=== PATIENT | male | born 1975 ===

== ENCOUNTER 2017-04-09 09:03 | Emergency (ER) | payer MEDICAID ==
[2017-04-09 09:22] VITALS: RESP 18; TEMP 98.6
[2017-04-09] MEDS ORDERED: Sodium Chloride 0.9% 1,000 ML IV STA (10:24)
--- NOTE | 2017-04-09 10:27 | ED PDOC ---
Arrival/HPI - General Chief Complaint: Flu-like Symptoms Time Seen by Provider: 04/09/17 09:52 Historian: Patient, Spouse - History of Present Illness Narrative History of Present Illness (Text): you were treated in the ED today for history of pituitary tumor medically treated and now with sinus congestion/body aches/fever and a recent cut to right 2nd finger which has healed and your tetanus is out of date but no bony pain otherwise without any nausea/vomiting/headache/dizziness/difficulty breathing/chest pain/abdomen pain/numbness/tingling/loss of limb function/pain with urination. 04/09/17 10:25 04/09/17 10:27 Time/Duration: Other (2-3 days) Symptom Onset: Gradual Symptom Course: Unchanged Quality: Aching Past Medical History - Provider Review Nursing Documentation Reviewed: Yes - Travel History Have you recently traveled outside [place] w/in the past 3 mons?: No - Infectious Disease Hx of Infectious Diseases: None - Neurological Other/Comment: Brain Tumor - Psychiatric Hx Substance Use: No - Surgical History Other/Comment: Jaw surgery with plates Family/Social History - Physician Review Nursing Documentation Reviewed: Yes Family/Social History: No Known Family HX Smoking Status: Never Smoked Hx Alcohol Use: No Hx Substance Use: No Allergies/Home Meds Allergies/Adverse Reactions: Allergies Penicillins Allergy (Verified 04/09/17 09:22) ANAPHYLAXIS Home Medications: Home Meds Medication Instructions Recorded Confirmed Cabergoline [Cabergoline] 0.5 mg PO MON 04/09/17 04/09/17 Review of Systems - Review of Systems Constitutional: Fatigue Eyes: Normal ENT: Normal, Rhinorrhea, Sinus Congestion Respiratory: Normal Cardiovascular: Normal Gastrointestinal: Normal Genitourinary Male: Normal Musculoskeletal: Myalgias Skin: Normal Neurological: Normal Endocrine: Normal Hemo/Lymphatic: Normal Psychiatric: Normal Physical Exam Vital Signs Reviewed: Yes Vital Signs Temp Pulse Resp BP Pulse Ox 04/09/17 09:20 98.6 F 89 18 127/85 96 Temperature: Afebrile Blood Pressure: Normal Pulse: Regular Respiratory Rate: Normal Appearance: Positive for: Well-Appearing, Non-Toxic, Comfortable Pain Distress: None Mental Status: Positive for: Alert and Oriented X 3 - Systems Exam Head: Present: Atraumatic, Normocephalic Pupils: Present: PERRL Extroacular Muscles: Present: EOMI Conjunctiva: Present: Normal Ears: Present: Normal Mouth: Present: Moist Mucous Membranes Pharnyx: Present: Normal Nose (External): Present: Atraumatic Nose (Internal): Present: Other (sinus congestion) Neck: Present: Normal Range of Motion Respiratory/Chest: Present: Clear to Auscultation, Good Air Exchange, Respiratory Distress Cardiovascular: Present: Regular Rate and Rhythm Abdomen: No: Tenderness, Distention, Normal Bowel Sounds, Peritoneal Signs, Rebound, Guarding, McBurney's Point Tender, Rovsing's Sign Present, Hernias, Feeding Tubes, Ostomy Tubes, Mass/Organomegaly, Scars, Other Back: Present: Normal Inspection Upper Extremity: Present: Normal Inspection Lower Extremity: Present: Normal Inspection Neurological: Present: GCS=15, CN II-XII Intact, Speech Normal, Motor Func Grossly Intact Skin: Present: Warm, Normal Color Psychiatric: Present: Alert, Oriented x 3, Normal Insight, Normal Concentration Medical Decision Making ED Course and Treatment: you were treated in the ED today for history of pituitary tumor medically treated and now with sinus congestion/body aches/fever and a recent cut to right 2nd finger which has healed and your tetanus is out of date but no bony pain otherwise without any nausea/vomiting/headache/dizziness/difficulty breathing/chest pain/abdomen pain/numbness/tingling/loss of limb function/pain with urination. You were otherwise breathing easily, pink lips, smiling with your and talking easily, good strength/sensation, alert/oriented, walking easily, clear lungs, no abdomen tenderness, no fever temp 98.6, stable heart rate 89, stable breathing rate 18, excellent oxygen level 96% room air, elevated blood pressure 127/85_ which we recommend repeat in 2-3 days primary care office to determine further treatment, you have blood tests no infection count 3.6, stable blood level hemoglobin 14/platelets 222, stable chemistry, heart blood test normal, urine test negative, influenza negative, radiology CT head no acute abnormality but with intra-sellar soft tissue density with mild expansion of the sella turcica and chest xray linear airspace disease left lung could represent atelectasis without focal consolidation, ECG normal sinus rhythm , intravenous fluids done in the ED with improvement, counselled to monitor sypmptoms and thus discharged home with wife_. 1. Recommend cough or sputum development in 24-48-72 hours then start azithromycin as directed for lung infection/early pneumonia treatment. 2. Recommend follow-up primary care 2-3 days to review symptoms, referral to neurology/neurosurgery/oncology for your CT head findings of a intra-sellar soft tissue density with mild expansion of the sella turcica to ensure no development of cancer, referral to pulmonary clinic for chest xray findings of airspace disease to ensure no cancer development. 4. If any worsening pain, fever, chills, nausea, vomiting, difficulty breathing, numbness, loss of limb function, pain with urination or any medical condition then return to the ED. 04/09/17 12:08 CXR: Creator : Adela Duarte MD FINDINGS: LINES AND TUBES: None. LUNG AND PLEURA: The lungs are well inflated. There is linear airspace disease in the left lung base. No focal consolidation. HEART AND MEDIASTINUM: The heart is not enlarged. The hilar and mediastinal contours are within normal limits. SKELETAL STRUCTURES: The bony structures are within normal limits for the patient's age. VISUALIZED UPPER ABDOMEN: Normal. OTHER FINDINGS: None. IMPRESSION: Airspace disease in the left lung base could represent atelectasis however superimposed pneumonia cannot be excluded. Follow-up after medical management is recommended to ensure complete resolution. 04/09/17 12:10 CT Head: Creator : Adela Duarte MD FINDINGS: HEMORRHAGE:No intracranial hemorrhage. BRAIN:Grande-white matter differentiation is preserved. There is no mass effect or extra-axial fluid collection. There is no territorial infarction. There is intrasellar soft tissue density with mild expansion of the sella turcica. VENTRICLES:The ventricles are normal in size, shape and configuration. CALVARIUM:The skull base and calvarium are normal. PARANASAL SINUSES:There is moderate polypoid soft tissue in the maxillary sinuses with fluid levels and moderate mucosal thickening in the ethmoid air cells. The sphenoid and frontal sinuses are clear. MASTOID AIR CELLS:Predominantly clear. OTHER FINDINGS:None. IMPRESSION: 1. No acute intracranial abnormality. 2. Intra sellar soft tissue density is not completely characterized on CT examination. An MRI of the brain without and with intravenous contrast with sella protocol on a non emergent basis would be helpful for definitive characterization of pituitary tumor as suggested in the history. 3. Acute on chronic maxillary sinusitis and chronic ethmoid sinusitis. 04/09/17 13:34 04/09/17 13:36 04/09/17 13:43 Reassessment Condition: Improved - Lab Interpretations Lab Results: 04/09/17 10:25 04/09/17 10:25 Lab Results 04/09/17 10:25: pO2 164 H, VBG pH 7.43, VBG pCO2 43.0, VBG HCO3 28.5 H, VBG Total CO2 29.8 H, VBG O2 Sat (Calc) 98.9 H, VBG Base Excess 3.7 H, VBG Potassium 4.0, Sodium 133.0, Chloride 100.0, Glucose 92, Lactate 0.8, FiO2 21.0 , Venous Blood Potassium 4.0 04/09/17 10:25: Influenza Typ A,B (EIA) Negative for flu a/b 04/09/17 10:25: Sodium 136, Chloride 98, Potassium 4.0, Carbon Dioxide 25, Anion Gap 17, BUN 11, Creatinine 0.8, Est GFR ( Amer) > 60, Est GFR (Non- Af Amer) > 60, Random Glucose 91, Calcium 9.4, Magnesium 1.9, Total Bilirubin 0.4, AST 25, ALT 35, Alkaline Phosphatase 48, Lactate Dehydrogenase 451, Total Creatine Kinase 88, Troponin I < 0.01, Total Protein 7.2, Albumin 4.0, Globulin 3.2, Albumin/Globulin Ratio 1.3 04/09/17 10:25: Urine Color Light yellow, Urine Appearance Clear, Urine pH 6.5, Ur Specific [place] 1.015, Urine Protein Negative, Urine Glucose (UA) Negative, Urine Ketones Negative, Urine Blood Negative, Urine Nitrate Negative, Urine Bilirubin Negative, Urine Urobilinogen 0.2, Ur Leukocyte Esterase Negative 04/09/17 10:25: PT 12.2, INR 1.06, APTT 30.6 04/09/17 10:25: WBC 3.6 L, RBC 4.88, Hgb 14.5, Hct 42.6, MCV 87.3, MCH 29.7, MCHC 34.0, RDW 13.1, Plt Count 222, MPV 9.7, Gran % 55.6, Lymph % (Auto) 30.5, [place] % (Auto) 13.0 H, Eos % (Auto) 0.3 L, Baso % (Auto) 0.6, Gran # 2.01, Lymph # 1.1 L, [place] # 0.5, Eos # 0.0, Baso # 0.02 I have reviewed the lab results: Yes - RAD Interpretation Radiology Orders: 04/09/17 10:21 CHEST TWO VIEWS (PA/LAT) [RAD] Stat 04/09/17 10:23 HEAD W/O CONTRAST [CT] Stat [employer] Estimator: Radiologist - EKG Interpretation Interpreted by ED Physician: Yes (NSR, flipped t waves av4, v1) Type: 12 lead EKG - Medication Orders Current Medication Orders: Discontinued Medications Sodium Chloride (Sodium Chloride 0.9%) 1,000 mls @ 999 mls/hr IV .Q1H1M STA Stop: 04/09/17 11:24 Last Admin: 04/09/17 10:43 Dose: 999 mls/hr eMAR Start Stop Document 04/09/17 10:43 SF (Rec: 04/09/17 10:43 [email or web address] Intravenous Solution Start Date 04/09/17 Start Time 10:43 End Date 04/09/17 End time 11:44 Total Infusion Time 61 Disposition/Present on Arrival - Present on Arrival Any Indicators Present on Arrival: No History of DVT/PE: No History of Uncontrolled Diabetes: No Urinary Catheter: No History of Decub. Ulcer: No History Surgical Site Infection Following: None - Disposition Have Diagnosis and Disposition been Completed?: Yes Diagnosis: Viral syndrome Disposition: HOME/ ROUTINE Disposition Time: 13:43 Patient Plan: Discharge Condition: IMPROVED Additional Instructions: you were treated in the ED today for history of pituitary tumor medically treated and now with sinus congestion/body aches/fever and a recent cut to right 2nd finger which has healed and your tetanus is out of date but no bony pain otherwise without any nausea/vomiting/headache/dizziness/difficulty breathing/chest pain/abdomen pain/numbness/tingling/loss of limb function/pain with urination. You were otherwise breathing easily, pink lips, smiling with your and talking easily, good strength/sensation, alert/oriented, walking easily, clear lungs, no abdomen tenderness, no fever temp 98.6, stable heart rate 89, stable breathing rate 18, excellent oxygen level 96% room air, elevated blood pressure 127/85_ which we recommend repeat in 2-3 days primary care office to determine further treatment, you have blood tests no infection count 3.6, stable blood level hemoglobin 14/platelets 222, stable chemistry, heart blood test normal, urine test negative, influenza negative, radiology CT head no acute abnormality but with intra-sellar soft tissue density with mild expansion of the sella turcica and chest xray linear airspace disease left lung could represent atelectasis without focal consolidation, ECG normal sinus rhythm , intravenous fluids done in the ED with improvement, counselled to monitor sypmptoms and thus discharged home with wife_. 1. Recommend cough or sputum development in 24-48-72 hours then start azithromycin as directed for lung infection/early pneumonia treatment. 2. Recommend follow-up primary care 2-3 days to review symptoms, referral to neurology/neurosurgery/oncology for your CT head findings of a intra-sellar soft tissue density with mild expansion of the sella turcica to ensure no development of cancer, referral to pulmonary clinic for chest xray findings of airspace disease to ensure no cancer development. 4. If any worsening pain, fever, chills, nausea, vomiting, difficulty breathing, numbness, loss of limb function, pain with urination or any medical condition then return to the ED. Prescriptions: Azithromycin [Z-Edward] 250 mg PO DAILY 5 Days #6 tab Forms: [facility] ([place]), WORK NOTE
[2017-04-09 11:01] LABS: BASO # 0.02 K/mm3 (0.0-2.0); BASO % 0.6 % (0.0-3.0); EOS % 0.3 % (1.5-5.0); GRAN # 2.01 (1.4-6.5); GRAN % 55.6 % (50.0-68.0); HEMOGLOBIN 14.5 g/dL (14.0-18.0); LYMPH # 1.1 (1.2-3.4); LYMPH % 30.5 % (22.0-35.0); MEAN CELL VOLUME 87.3 fl (80.0-105.0); MEAN CORPUSCULAR HEMOGLOBIN 29.7 pg (25.0-35.0); MEAN PLATELET VOLUME 9.7 fl (7.0-11.0); MONO # 0.5 (0.1-0.6); RBC 4.88 10^6/uL (3.5-6.1); RED CELL DISTRIBUTION WIDTH 13.1 % (11.5-14.5); WHITE BLOOD COUNT 3.6 10^3/ul (4.5-11.0)
[2017-04-09 11:03] LABS: PH,URINE 6.5 (4.7-8.0); URINE BILIRUBIN NEGATIVE (NEGATIVE); URINE BLOOD NEGATIVE (NEGATIVE); URINE GLUCOSE (UA) NEGATIVE (NEGATIVE); URINE LEUKOCYTE ESTERASE NEGATIVE Leu/uL (NEGATIVE); URINE NITRATE NEGATIVE (NEGATIVE); URINE PROTEIN NEGATIVE mg/dL (<30 mg/dL); URINE UROBILINOGEN 0.2 E.U./dL (<1 E.U./dL)
[2017-04-09 11:07] LABS: INR 1.06 (0.93-1.08); PARTIAL THROMBOPLASTIN TIME 30.6 Seconds (25.1-36.5); PROTHROMBIN TIME 12.2 SECONDS (9.4-12.5); URINE APPEARANCE CLEAR (CLEAR); URINE COLOR LIGHT YELLOW (YELLOW)
[2017-04-09 11:08] LABS: VENOUS BLOOD GAS BASE EXCESS 3.7 mmol/L (0.0-2.0); VENOUS BLOOD GAS PO2 164 mm/Hg (30-55); VENOUS BLOOD PH 7.43 (7.32-7.43)
[2017-04-09 11:14] LABS: ALB/GLOB RATIO 1.3 (1.1-1.8); ALT/SGPT 35 U/L (7-56); AST/SGOT 25 U/L (17-59); BLOOD UREA NITROGEN 11 mg/dL (7-21); CALCIUM 9.4 mg/dL (8.4-10.5); GFR AFRICAN-AMERICAN > 60; GFR NON-AFRICAN AMERICAN > 60; MAGNESIUM 1.9 mg/dL (1.7-2.2)
[2017-04-09 11:25] LABS: TROPONIN I < 0.01 ng/mL
--- NOTE | 2017-04-09 12:01 | CT ---
PROCEDURE: CT HEAD WITHOUT CONTRAST. HISTORY: 41yoM, hx of pituitary tumor with fatigue COMPARISON: None available. TECHNIQUE: Axial computed tomography images were obtained through the head/brain without intravenous contrast. Radiation dose: Total exam DLP = 1017.37 mGy-cm. This CT exam was performed using one or more of the following dose reduction techniques: Automated exposure control, adjustment of the mA and/or kV according to patient size, and/or use of iterative reconstruction technique. FINDINGS: HEMORRHAGE: No intracranial hemorrhage. BRAIN: Grande-white matter differentiation is preserved. There is no mass effect or extra-axial fluid collection. There is no territorial infarction. There is intrasellar soft tissue density with mild expansion of the sella turcica. VENTRICLES: The ventricles are normal in size, shape and configuration. CALVARIUM: The skull base and calvarium are normal. PARANASAL SINUSES: There is moderate polypoid soft tissue in the maxillary sinuses with fluid levels and moderate mucosal thickening in the ethmoid air cells. The sphenoid and frontal sinuses are clear. MASTOID AIR CELLS: Predominantly clear. OTHER FINDINGS: None. IMPRESSION: 1. No acute intracranial abnormality. 2. Intra sellar soft tissue density is not completely characterized on CT examination. An MRI of the brain without and with intravenous contrast with sella protocol on a non emergent basis would be helpful for definitive characterization of pituitary tumor as suggested in the history. 3. Acute on chronic maxillary sinusitis and chronic ethmoid sinusitis.
--- NOTE | 2017-04-09 12:02 | RAD ---
HISTORY: COMPARISON: No prior. TECHNIQUE: Chest PA and lateral FINDINGS: LINES AND TUBES: None. LUNG AND PLEURA: The lungs are well inflated. There is linear airspace disease in the left lung base. No focal consolidation. HEART AND MEDIASTINUM: The heart is not enlarged. The hilar and mediastinal contours are within normal limits. SKELETAL STRUCTURES: The bony structures are within normal limits for the patient's age. VISUALIZED UPPER ABDOMEN: Normal. OTHER FINDINGS: None. IMPRESSION: Airspace disease in the left lung base could represent atelectasis however superimposed pneumonia cannot be excluded. Follow-up after medical management is recommended to ensure complete resolution.
[2017-04-09 13:53] VITALS: BP 126/75; PULSE 80; O2SAT 99
--- NOTE | 2017-04-09 19:09 | CARD ---
APPROVED REPORT EKG Measurement Heart [id number] <Conclusion> Normal sinus rhythm Normal ECG
== END 2017-04-09 13:59 | disposition home or self-care (01) ==
LOC: ED 09:03
DX: B34.9 Viral infection, unspecified (principal)
CPT/HCPCS: 70450; 71046; 80053; 81003; 82550; 82803; 83615; 83735; 84484; 85025; 85610; 85730; 87086; 87804; 93005; 96360; 99285; J7040

== ENCOUNTER 2017-09-03 15:14 | Emergency (ER) | payer MEDICAID, OTHER ==
[2017-09-03 16:25] VITALS: BMI 28.6
[2017-09-03 16:29] VITALS: TEMP 98.3; O2SAT 98
[2017-09-03] MEDS ORDERED: Sodium Chloride 0.9% 1,000 ML IV STA (17:11)
[2017-09-03 18:08] LABS: BASO # 0.05 K/mm3 (0.0-2.0); BASO % 0.6 % (0.0-3.0); EOS # 0.3 (0.0-0.7); EOS % 3.5 % (1.5-5.0); GRAN # 5.58 (1.4-6.5); GRAN % 71.4 % (50.0-68.0); HEMOGLOBIN 14.2 g/dL (14.0-18.0); LYMPH # 1.5 (1.2-3.4); LYMPH % 19.3 % (22.0-35.0); MEAN CELL VOLUME 85.8 fl (80.0-105.0); MEAN CORPUSCULAR HEMOGLOBIN 29.7 pg (25.0-35.0); MEAN CORPUSCULAR HGB CONC 34.6 g/dl (31.0-37.0); MEAN PLATELET VOLUME 9.4 fl (7.0-11.0); MONO # 0.4 (0.1-0.6); MONO % 5.2 % (1.0-6.0); RBC 4.78 10^6/uL (3.5-6.1); RED CELL DISTRIBUTION WIDTH 12.7 % (11.5-14.5); WHITE BLOOD COUNT 7.8 10^3/ul (4.5-11.0)
[2017-09-03 18:09] LABS: URINE BILIRUBIN NEGATIVE (NEGATIVE); URINE BLOOD NEGATIVE (NEGATIVE); URINE GLUCOSE (UA) NEGATIVE (NEGATIVE); URINE LEUKOCYTE ESTERASE NEGATIVE Leu/uL (NEGATIVE); URINE PROTEIN NEGATIVE mg/dL (<30 mg/dL); URINE UROBILINOGEN 0.2 E.U./dL (<1 E.U./dL)
[2017-09-03 18:13] LABS: URINE APPEARANCE CLEAR (CLEAR); URINE COLOR YELLOW (YELLOW)
[2017-09-03 18:14] LABS: INR 0.99 (0.93-1.08); PARTIAL THROMBOPLASTIN TIME 30.5 Seconds (25.1-36.5); PROTHROMBIN TIME 11.3 SECONDS (9.4-12.5)
--- NOTE | 2017-09-03 18:15 | ED PDOC ---
Arrival/HPI - General Chief Complaint: Abdominal Pain Time Seen by Provider: 09/03/17 16:34 Historian: Patient - History of Present Illness Narrative History of Present Illness (Text): 09/03/17 18:12 42yo male with no past medical history who present with 3weeks history of diffuse upper abdominal pain that radiates to his back. States pain became constant and worse over the past 3days. He did not take any medication for the pain. He denies nausea, vomiting, diarrhea, constipation, melena, hematemesis, hematuria, hematochezia, fever, chills, ripping/tearing upper back, SOB, chest pain, diaphoresis, sick contact, travel, any other complaint. Past Medical History - Provider Review Nursing Documentation Reviewed: Yes - Infectious Disease Hx of Infectious Diseases: None - Cardiac Hx Cardiac Disorders: No - Pulmonary Hx Respiratory Disorders: No - Neurological Hx Neurological Disorder: Yes Other/Comment: Brain Tumor - HEENT Hx HEENT Disorder: No - Renal Hx Renal Disorder: No - Endocrine/Metabolic Hx Endocrine Disorders: No - Hematological/Oncological Hx Blood Disorders: No - Integumentary Hx Dermatological Disorder: No - Musculoskeletal/Rheumatological Hx Musculoskeletal Disorders: No - Gastrointestinal Hx Gastrointestinal Disorders: No - Genitourinary/Gynecological Hx Genitourinary Disorders: No - Psychiatric Hx Psychophysiologic Disorder: No Hx Substance Use: No - Surgical History Other/Comment: Jaw surgery with plates - Anesthesia Hx Anesthesia: Yes Hx Anesthesia Reactions: No Hx Malignant Hyperthermia: No Family/Social History - Physician Review Nursing Documentation Reviewed: Yes Family/Social History: Unknown Family HX Smoking Status: Never Smoked Hx Alcohol Use: No Hx Substance Use: No Allergies/Home Meds Allergies/Adverse Reactions: Allergies No Known Allergies Allergy (Verified 09/03/17 16:25) Home Medications: Home Meds Medication Instructions Recorded Confirmed Cabergoline [Cabergoline] 0.5 mg PO MON 04/09/17 09/03/17 Review of Systems - Physician Review All systems were reviewed & negative as marked: Yes - Review of Systems Constitutional: Normal Eyes: Normal ENT: Normal Respiratory: Normal Cardiovascular: Normal Gastrointestinal: Abdominal Pain. absent: Constipation, Diarrhea, Nausea, Vomiting, Hematochezia, Hematemesis Genitourinary Male: Normal Musculoskeletal: Normal Skin: Normal Neurological: Normal Endocrine: Normal Hemo/Lymphatic: Normal Psychiatric: Normal Physical Exam Vital Signs Reviewed: Yes Vital Signs Temp Pulse Resp BP Pulse Ox 09/03/17 19:58 68 15 118/66 09/03/17 16:28 98.3 F 76 16 106/71 98 Temperature: Afebrile Blood Pressure: Normal Pulse: Regular Respiratory Rate: Normal Appearance: Positive for: Well-Appearing, Non-Toxic, Comfortable Pain Distress: None Mental Status: Positive for: Alert and Oriented X 3 - Systems Exam Head: Present: Atraumatic, Normocephalic Pupils: Present: PERRL Extroacular Muscles: Present: EOMI Conjunctiva: Present: Normal Mouth: Present: Moist Mucous Membranes Neck: Present: Normal Range of Motion Respiratory/Chest: Present: Clear to Auscultation, Good Air Exchange. No: Respiratory Distress, Accessory Muscle Use Cardiovascular: Present: Regular Rate and Rhythm, Normal S1, S2. No: Murmurs Abdomen: Present: Other (Soft). No: Tenderness, Distention, Peritoneal Signs, Rebound, Guarding, McBurney's Point Tender, Rovsing's Sign Present Back: Present: Normal Inspection Upper Extremity: Present: Normal Inspection. No: Cyanosis, Edema Lower Extremity: Present: Normal Inspection. No: Edema Neurological: Present: GCS=15, CN II-XII Intact, Speech Normal Skin: Present: Warm, Dry, Normal Color. No: Rashes Psychiatric: Present: Alert, Oriented x 3, Normal Insight, Normal Concentration Medical Decision Making ED Course and Treatment: 09/03/17 19:37 Pt in emergency department for stated history. His PE was benign. He was not in any distress. His lab was unremarkable abdominal/Pelvis CT Bladder: Bladder not well distended. Reproductive: Unremarkable as visualized. ABDOMEN and PELVIS: Intraperitoneal space: Unremarkable. No free air. No significant fluid collection. Bones/joints: No acute fracture. No dislocation. Soft tissues: There is a 4 mm soft tissue nodule right middle lobe series 2 image 10. Small, fatcontaining bilateral inguinal hernias. Vasculature: Unremarkable. No abdominal aortic aneurysm. Lymph nodes: Unremarkable. No enlarged lymph nodes. IMPRESSION: Possible mild left-sided colitis. Preliminary interpretation is based on receipt of 638 image(s). A final report will be issued subsequently. We appreciate the opportunity to be involved in this patient's care. Pt have no leukocytosis and no tenderness on exam. suspicion for colitis is very low at this time. Pt likely have gastritis. Result was DW the pt. He will be DC home with a rx for pepcid and refer him to GI - Lab Interpretations Lab Results: 09/03/17 17:45 09/03/17 17:45 Lab Results 09/03/17 17:45: Sodium 140, Potassium 4.0, Chloride 101, Carbon Dioxide 28, Anion Gap 15, BUN 15, Creatinine 0.8, Est GFR ( Amer) > 60, Est GFR (Non- Af Amer) > 60, Random Glucose 85, Calcium 9.3, Magnesium 1.9, Total Bilirubin 0.6, AST 22, ALT 35, Alkaline Phosphatase 51, Lactate Dehydrogenase 409, Total Creatine Kinase 75, Troponin I < 0.01, Total Protein 7.3, Albumin 4.4, Globulin 2.9, Albumin/Globulin Ratio 1.5, Lipase 29 09/03/17 17:45: Urine Color Yellow, Urine Appearance Clear, Urine pH 6.0, Ur Specific [place] 1.025, Urine Protein Negative, Urine Glucose (UA) Negative, Urine Ketones Negative, Urine Blood Negative, Urine Nitrate Negative, Urine Bilirubin Negative, Urine Urobilinogen 0.2, Ur Leukocyte Esterase Negative 09/03/17 17:45: PT 11.3, INR 0.99, APTT 30.5 09/03/17 17:45: WBC 7.8 D, RBC 4.78, Hgb 14.2, Hct 41.0 L, MCV 85.8, MCH 29.7, MCHC 34.6, RDW 12.7, Plt Count 240, MPV 9.4, Gran % 71.4 H, Lymph % (Auto) 19.3 L, [place] % (Auto) 5.2, Eos % (Auto) 3.5, Baso % (Auto) 0.6, Gran # 5.58, Lymph # (Auto) 1.5, [place] # (Auto) 0.4, Eos # (Auto) 0.3, Baso # (Auto) 0.05 - RAD Interpretation Radiology Orders: 09/03/17 16:46 ABD & PELVIS W/O PO OR IV CONT [CT] Stat - Medication Orders Current Medication Orders: Discontinued Medications Sodium Chloride (Sodium Chloride 0.9%) 1,000 mls @ 999 mls/hr IV .Q1H1M STA Stop: 09/03/17 18:11 Last Admin: 09/03/17 17:33 Dose: 999 mls/hr eMAR Start Stop Document 09/03/17 17:33 MIGUEL (Rec: 09/03/17 17:33 [place] [id number]) Intravenous Solution Start Date 09/03/17 Start Time 17:33 End Date 09/03/17 End time 18:33 Total Infusion Time 60 Ketorolac Tromethamine (Toradol) 30 mg IVP STAT STA Stop: 09/03/17 17:14 Last Admin: 09/03/17 17:32 Dose: 30 mg MAR Pain Assessment Document 09/03/17 17:32 MIGUEL (Rec: 09/03/17 17:33 [place] [id number]) Pain Reassessment Is this a pain reassessment? Yes Presence of Pain Presence of Pain Yes Pain Scale Used Pain Scale Used Numeric Location Pain Location Body Site Abdomen Description Intensity of Pain at present 7 IVP Administration Document 09/03/17 17:32 MIGUEL (Rec: 09/03/17 17:33 [place] [id number]) Charges for Administration # of IVP Administrations 1 Disposition/Present on Arrival - Present on Arrival Any Indicators Present on Arrival: No History of DVT/PE: No History of Uncontrolled Diabetes: No Urinary Catheter: No History of Decub. Ulcer: No History Surgical Site Infection Following: None - Disposition Have Diagnosis and Disposition been Completed?: Yes Diagnosis: Abdominal pain Disposition: HOME/ ROUTINE Disposition Time: 19:40 Patient Plan: Discharge Condition: STABLE Discharge Instructions (ExitCare): Acute Abdomen (Belly Pain), Adult (DC) Additional Instructions: Follow up with [employer] Representative Return to emergency department for any new or worsening symptoms Prescriptions: Famotidine [Pepcid] 40 mg PO DAILY #15 tab Referrals: Madi Lennon MD [Staff Provider] - Follow up with primary Forms: [employer] (Chinese)
[2017-09-03 18:17] LABS: ALB/GLOB RATIO 1.5 (1.1-1.8); ALBUMIN 4.4 g/dL (3.0-4.8); ALT/SGPT 35 U/L (7-56); AST/SGOT 22 U/L (17-59); BLOOD UREA NITROGEN 15 mg/dL (7-21); CALCIUM 9.3 mg/dL (8.4-10.5); GFR AFRICAN-AMERICAN > 60; GFR NON-AFRICAN AMERICAN > 60; LIPASE 29 U/L (23-300)
[2017-09-03 18:27] LABS: TROPONIN I < 0.01 ng/mL
[2017-09-03 19:59] VITALS: BP 118/66; PULSE 68; RESP 15
--- NOTE | 2017-09-04 11:05 | CT ---
PROCEDURE: CT Abdomen and Pelvis without intravenous contrast HISTORY: abdomianl pain COMPARISON: None. TECHNIQUE: Technique. Contrast dose: Radiation dose: Total exam DLP = 563 mGy-cm. This CT exam was performed using one or more of the following dose reduction techniques: Automated exposure control, adjustment of the mA and/or kV according to patient size, and/or use of iterative reconstruction technique. FINDINGS: LOWER THORAX: Unremarkable. LIVER: Unremarkable. No gross lesion or ductal dilatation. GALLBLADDER AND BILE DUCTS: Unremarkable. PANCREAS: Unremarkable. No gross lesion or ductal dilatation. SPLEEN: Unremarkable. ADRENALS: Unremarkable. No mass. KIDNEYS AND URETERS: Unremarkable. No hydronephrosis. No solid mass. VASCULATURE: Unremarkable. No aortic aneurysm. BOWEL: Unremarkable. No obstruction. No gross mural thickening. APPENDIX: Unremarkable. Normal appendix. PERITONEUM: Unremarkable. No free fluid. No free air. LYMPH NODES: Unremarkable. No enlarged lymph nodes. BLADDER: Unremarkable. REPRODUCTIVE: Unremarkable. BONES: No acute fracture. OTHER FINDINGS: None. IMPRESSION: Unremarkable non contrast enhanced CT of the abdomen and pelvis.
== END 2017-09-03 19:58 | disposition home or self-care (01) ==
LOC: ED 15:14
DX: R10.10 Upper abdominal pain, unspecified (principal)
CPT/HCPCS: 74176; 80053; 81003; 82550; 83615; 83690; 83735; 84484; 85025; 85610; 85730; 96361; 96374; 99283; J1885; J7030